=== PATIENT | male | born 1960 | race Caucasian/White ===

== ENCOUNTER → 2016-07-21 | Outpatient (CLI) | payer BC ==
[~2016-07-21] VITALS: Ht 180.3 cm; Wt 67.0 kg
[~2016-07-21] MED LIST: CALCIUM CARBONATE; IBUPROFEN 200200 MG PO; STIOLTO RESPIMAT4 GM IH
[2016-07-21 06:18] VITALS: BP 140/94; PULSE 67
== END ==
LOC: COL.CARD 06:07
DX: R07.89 Other chest pain (principal); J44.9 Chronic obstructive pulmonary disease, unspecified; Z82.49 Family history of ischemic heart disease and other diseases of the circulatory system
CPT/HCPCS: A9502